=== PATIENT | female | born 1995 | race Caucasian/White ===

== ENCOUNTER 2019-02-01 11:42 | Inpatient (IN) | payer MEDICAID, OTHER ==
[~2019-02-01] VITALS: Ht 157.5 cm; Wt 67.2 kg
[2019-02-01 11:53] VITALS: Ht 157.5 cm; Wt 67.2 kg
--- NOTE | 2019-02-01 11:54 | TRIAGE ---
OB Triage Datetime Report Generated by CPN: 02/01/2019 11:54 Datetime: 02/01/2019 11:52 EGA: 39.0 Datetime: 02/01/2019 11:40 Assessment Type: Triage Maternal Assessment Level of Consciousness: Fully Conscious DTR's/Clonus: DTRs 2+; No Clonus Headache: Denies Blurred Vision: No Respiratory Effort: Unlabored; Regular Rhythm; Equal Expansion Breath Sounds, Left: Clear and Equal Breath Sounds, Right: Clear and Equal Nausea/Vomiting: Denies RUQ Epigastric Pain: Denies Lower Extremities Edema: None Degree: None Upper Extremities Edema: None Degree: None Facial Edema: None Fall Risk Assessment History of Falling: (0) No Secondary Diagnosis: (0) No Ambulatory Aid: (0) Bedrest/Nurse Assist IV Therapy: (0) No Gait: (0) Normal/Bedrest/Immobile Mental Status: (0) Oriented to Own Ability Fall Score: 0 Fall Risk Score Definition: No Risk: No action required Datetime: 02/01/2019 11:32 Time of Arrival: 02/01/2019 11:32 Arrived By: Wheelchair Arrived From: Home Chief Complaint: R/O LABOR Movement: Present Contractions: Regular Time Contractions Began: 02/01/2019 04:00 Contractions: 5-10 Rupture of Membranes: Denies Vaginal Discharge: Denies Recent Sexual Intercouse: Denies Abdominal Trauma: Not Applicable Additional Patient Complaints: NONE Time Provider Notified: 02/01/2019 11:43 Provider Notified: JAMEY Initial Plan: VE AND MONITOR
[2019-02-01] MEDS ORDERED: OXYTOCIN 30 UNITS/LR 500 ML IV SCH ×2 (13:00)
[2019-02-01] MEDS ORDERED: MISOPROSTOL 200 MCG TAB PR PRN ×2 (13:00→17:30)
[2019-02-01] MEDS ORDERED: LIDOCAINE 1% (MPF) 30 ML INJ INJ PRN (13:00)
[2019-02-01] MEDS ORDERED: METHYLERGONOVINE 0.2 MG INJ IM PRN ×2 (13:00→17:30)
[2019-02-01] MEDS: LACTATED RINGER'S 1,000 ML IV SCH ×2 (13:00→16:18)
[2019-02-01] MEDS ORDERED: AMPICILLIN 2 GM/NS (PMX) 100 ML IV ONE (13:00)
[2019-02-01] MEDS ORDERED: OXYTOCIN 30 UNITS/LR 500 ML IV PRN ×2 (13:00→17:30)
[2019-02-01] MEDS ORDERED: BUTORPHANOL 2 MG INJ IV PRN (13:00)
[2019-02-01] MEDS ORDERED: CARBOPROST 250 MCG INJ IM PRN ×2 (13:00→17:30)
[2019-02-01] MEDS ORDERED: LACTATED RINGER'S 1,000 ML IV PRN (13:44)
--- NOTE | 2019-02-01 14:20 | PREAC ---
Date/Time of Note Date/Time of Note DATE: 02/01/19 TIME: : Anesthesia Eval and Record Evaluation Time Pre-Procedure Interview DATE: 02/01/19 TIME: 14: Age 23 Sex female NPO: 8 hrs Preoperative diagnosis labor pain Planned procedure labor epidural Past Medical History Past Medical History: None Surgery & Anesthesia Issues No known issue Meds Anticoagulation: No Beta Luis M within 24 hr: No Reason Beta Luis M not given: Pt. not on B-Luis M Current Medications Lactated Ringer's 1,000 ml @ 125 mls/hr Q8H IV Last administered on 02/01/19at 13:00; Admin Dose 125 MLS/HR; Start 02/01/19 at 12:53 Ampicillin 50 ml @ 100 mls/hr Q4H IV ; Start 02/01/19 at 16:00 Butorphanol Tartrate (Stadol) 2 mg Q2H PRN IV .PAIN SCALE 6-10; Start 02/01/19 at 13:00 Lidocaine (Xylocaine 1% (Mpf)) 30 ml ONCE PRN INJ .EPISIOTOMY; Start 02/01/19 at 13:00 Oxytocin/Lactated Ringer's 500 ml @ 500 mls/hr ONCE POST IV ; Start 02/01/19 at 13:00 Oxytocin/Lactated Ringer's 500 ml @ 125 mls/hr POST IV ; Start 02/01/19 at 13:00 Oxytocin/Lactated Ringer's 500 ml @ 0 mls/hr ONCE PRN IV .VAGINAL BLEEDING; Start 02/01/19 at 13:00 Methylergonovine Maleate (Methergine) 0.2 mg ONCE PRN IM .VAGINAL BLEEDING; Start 02/01/19 at 13:00 Carboprost Tromethamine (Hemabate) 250 mcg ONCE PRN IM .VAGINAL BLEEDING; Start 02/01/19 at 13:00 Misoprostol (Cytotec) 1,000 mcg ONCE PRN PA .VAGINAL BLEEDING; Start 02/01/19 at 13:00 Lactated Ringer's 1,000 ml @ 2,000 mls/hr Q30M PRN IV .ANESTHESIA Last administered on 02/01/19at 13:53; Admin Dose 2,000 MLS/HR; Start 02/01/19 at 13:44 Meds reviewed: Yes Allergies Coded Allergies: No Known Allergy (Unverified , 02/01/19) Allergies Reviewed: Yes Labs/Studies Labs Reviewed: Reviewed by anesthesiologist Result Diagram: 02/01/19 1210 Laboratory Tests 02/01/19 12:10 Blood Bank Test 02/01/19 12:10 Antibody Screen NEGATIVE Blood Type B POSITIVE Rh Immune Globulin Candidate NO test: Positive Pre-procedure Exam Airway: Adequate mouth opening, Adequate thyromental dist Mallampati: Mallampati III Teeth: Normal Lung: Normal Heart: Normal ASA Physical Status ASA physical status: 2 Emergency: None Planned Anesthetic Neuraxial: Epidural Planned Pain Management Epidural, Parenteral pain med, Other neuraxial med Pre-operative Attestations Prior to commencing anesthesia and surgery, the patient was re-evaluated, there was verification of: *The patient's identity *The results of appropriate recent lab work and preoperative vital signs *The above evaluation not changing prior to induction *Anesthetic plan, risk benefits, alternative and complications discussed with patient/family; questions answered; patient/family understands, accepts and wishes to proceed. CHRISTIANO ZAPIEN MD February 01, 2019 14:20
[2019-02-01] MEDS ORDERED: ZOLPIDEM 5 MG TAB PO PRN (14:30)
[2019-02-01] MEDS ORDERED: DIPHENHYDRAMINE 50 MG INJ IV PRN (14:30)
[2019-02-01] MEDS ORDERED: FENTAnyl 2MCG/ML-ROPIV 0.2% 100 ML BAG EPI SCH (14:30)
[2019-02-01] MEDS ORDERED: HYDROmorphONE 0.5 MG/0.5 ML SYG IV PRN ×2 (14:30)
[2019-02-01] MEDS ORDERED: ONDANSETRON 4 MG INJ IV PRN ×2 (14:30→17:30)
[2019-02-01] MEDS ORDERED: KETOROLAC 30 MG INJ IV PRN (14:30)
[2019-02-01] MEDS ORDERED: NALOXONE (0.4 MG/ML) INJ IV PRN (14:30)
[2019-02-01] MEDS ORDERED: AMPICILLIN 1 GM/NS (PMX) 50 ML IV SCH (16:00)
--- NOTE | 2019-02-01 16:43 | PAC ---
Date/Time of Note Date/Time of Note DATE: 02/01/19 TIME: 16:42 Post-Anesthesia Notes Post-Anesthesia Note Activity: WNL Respiratory function: WNL Cardiovascular function: WNL Mental status: Baseline Pain reasonably controlled: Yes Hydration appropriate: Yes Nausea/Vomiting absent: Yes CHRISTIANO ZAPIEN MD February 01, 2019 16:43
--- NOTE | 2019-02-01 17:03 | LDN ---
Date/Time of Note Date/Time of Note DATE: 02/01/19 TIME: 17:02 Delivery Summary Weeks of Gestation 39 Placenta Delivered: Spontaneously Meconium: none Episiotomy: No Estimated blood loss: 150 Sponge & Needle done & correct: Yes All needle counts correct: Yes Any foreign bodies felt in the: No Delivery Information Sex Infant Sex: female Apgars 1 Minute: 9 5 Minute: 9 Suctioning Nose & mouth suctioned at gordo: No Delee suction performed: No Umbilical Cord Umbilical cord with: 3 Vessels Cord presentations: no nuchal cord Cord Blood was obtained: Yes KIARRA CONCEPCION MD February 01, 2019 17:03
--- NOTE | 2019-02-01 17:19 | PREOPHP ---
DATE OF ADMISSION: 02/01/2019 HISTORY OF PRESENT ILLNESS: Ms. Brenda Lama is a 23-year-old 2, para 1, EDC of 02/09/20 19 intrauterine at 39 weeks gestational age, presented to triage in labor. She denies any vaginal bleeding or discharge. Her care took place at the [facility]. PAST MEDICAL HISTORY: None. MEDICATIONS: vitamins. PAST SURGICAL HISTORY: None. OBSTETRICAL HISTORY: x1 vaginal delivery. GYNECOLOGIC HISTORY: 12, regular 3 to 4 days. Denies any sexually transmitted infections. Sexually active with 1 partner. SOCIAL HISTORY: Denies any smoking, drugs or alcohol. FAMILY HISTORY: None. REVIEW OF SYSTEMS: All within normal except history of present illness. PHYSICAL EXAMINATION: HEENT: Within normal. LUNGS: CTA bilateral. CARDIOVASCULAR: S1, S2. Regular rate, rhythm. ABDOMEN: Gravid, nontender. Negative CVA bilateral. EXTREMITIES: Negative edema. No calf tenderness. PELVIC: Vaginal exam: 4 to 5 cm dilated, 90% effaced, -2 station on admission. heart tracing category 1. [place]: Regular contractions. ASSESSMENT: Intrauterine at term in labor. PLAN: Anticipated vaginal delivery. Dictated By: KIARRA HUITRON/MAUREEN Conf#: [id number] DID#: [id number]
[2019-02-01] MEDS ORDERED: OXYCODONE/ASPIRIN (4.88/325) TAB PO PRN ×2 (17:30)
[2019-02-01] MEDS ORDERED: NACL 0.9% 3 ML SYG IV SCH (17:30)
[2019-02-01] MEDS ORDERED: LANOLIN HPA 1 PKT TOP PRN (17:30)
[2019-02-01] MEDS ORDERED: MINERAL OIL LIGHT 10 ML VIAL TOP ONE (17:30)
[2019-02-01] MEDS ORDERED: DIPHENHYDRAMINE 25 MG CAP PO PRN (17:30)
[2019-02-01] MEDS ORDERED: WITCH HAZEL/GLYCERIN PAD PR PRN (17:30)
[2019-02-01 17:55] VITALS: BP 116/73; PULSE 65; RESP 16
[2019-02-01] MEDS: OXYTOCIN 30 UNITS/LR 500 ML IV SCH ×2 (18:04→20:54)
[2019-02-01 18:13] VITALS: BP 117/56; PULSE 73; RESP 18
[2019-02-01 18:27] VITALS: BP 117/69; PULSE 68; RESP 18
[2019-02-01 18:40] VITALS: BP 123/75; PULSE 78; RESP 18
[2019-02-01] MEDS: IBUPROFEN 600 MG TAB PO SCH (18:41)
[2019-02-01 18:59] VITALS: BP 117/73; PULSE 74; RESP 18
[2019-02-01 20:15] VITALS: BP 116/67; PULSE 72; RESP 19
[2019-02-01] MEDS: SENNA/DOCUSATE NA (8.6MG/50MG) TAB PO SCH (20:53)
[2019-02-02] VITALS: BP 126/72; PULSE 67; RESP 19
[2019-02-02 04:00] VITALS: BP 106/59; PULSE 85; RESP 19
[2019-02-02] MEDS: IBUPROFEN 600 MG TAB PO SCH ×5 (05:52→23:43)
[2019-02-02 08:10] VITALS: BP 100/60; PULSE 75; RESP 18
[2019-02-02] MEDS: SENNA/DOCUSATE NA (8.6MG/50MG) TAB PO SCH ×2 (08:24→21:02)
[2019-02-02 12:00] VITALS: BP 128/76; PULSE 73; RESP 18
--- NOTE | 2019-02-02 13:02 | PD.PPDC ---
[employer] Discharge Instruction Condition [id number] Patient Condition: Lwgdr2l Good Diet [id number] Diet: Kluev0w Resume Regular Diet Activity/Restrictions Ohzzp4Kg Activity: Mfexs5r Normal Activity May Shower [id number] Restrictions: Mxwzw5v No Exercising No Lifting No Driving No Sexual Activity Nothing in the Vagina No [place] No Tampons, douche Follow-up Follow-up with Physician: 3, Week/Weeks Return to clinic for Scaar0Rh [employer]PARER Instructions: Gxbdf1w Fever greater than 101 Chills Worsening abdominal pain Excessive Vaginal Bleeding More than 2 pads per hour Unable to tolerate diet [id number] OB Instructions: Roend7w Breast Tenderness Depression Blurried Vision Headache KIARRA CONCEPCION MD February 02, 2019 13:02
--- NOTE | 2019-02-02 13:03 | DS ---
Date/Time of Note Date/Time of Note DATE: 02/02/19 TIME: 13:02 Obstetrical Discharge Record Final Diagnosis Final Diagnosis: Term delivered Vaginal Delivery Obstetrical Delivery: Spontaneous Condition on Discharge Physical Assessment Last Vitals: stable afebrile Voiding: Yes Bowel Movement: Yes Breast: Soft, non-tender, Filling Fundus: Firm Abdomen and Incision: soft nt Calf Tenderness: No Patient Condition: Fair KIARRA CONCEPCION MD February 02, 2019 13:03
[2019-02-02] MEDS: FERROUS SULFATE (EC) 325 MG TAB PO SCH ×2 (13:49→21:02)
[2019-02-02 16:00] VITALS: BP 132/80; PULSE 71; RESP 18
[2019-02-02 19:40] VITALS: BP 132/80; PULSE 64; RESP 20
--- NOTE | 2019-02-02 20:24 | DELSUM ---
Delivery Summary A-C Datetime Report Generated by CPN: 02/02/2019 20:23 DELIVERY PERSONNEL Cloth Covered Helmet Puller: Luis F, [place] MATERNAL INFORMATION Delivery Anesthesia: Epidural Medications in Delivery: LR 500ML PITOCIN 30 UNITS Delivery QBL (ml): 150 Placenta Cultured: No LABOR SUMMARY EDC: 02/08/2019 00:00 No. Babies in Womb: 1 Attempted: No Labor Anesthesia: Epidural LABOR INFORMATION Reason for Induction: Not Applicable Onset of Labor: 02/01/2019 04:30 Complete Dilatation: 02/01/2019 16:25 Oxytocin: N/A Group B Beta Strep: Negative Antibiotics # of Doses: 1 Antibiotics Time of Last Dose: 02/01/2019 13:06 Steroids Given: None Reason Steroids Not Administered: Not Applicable MEMBRANES Membranes Rupture Method: Spontaneous Rupture of Membranes: 02/01/2019 15:58 Length of Rupture (hr): 0.87 Amniotic Fluid Color: Clear Amniotic Fluid Amount: Copious Amniotic Fluid Odor: Normal STAGES OF LABOR Stage 1 hr: 11 Stage 1 min: 55 Stage 2 hr: 0 Stage 2 min: 25 Stage 3 hr: 0 Stage 3 min: 2 Total Time in Labor hr: 12 Total Time in Labor min: 22 VAGINAL DELIVERY Initial Vag Sponge Count: 10 Initial Vag Sharps Count: 1 BABY A INFORMATION Delivery Date/Time: 02/01/2019 16:50 Method of Delivery: Vaginal Born in Route : No : N/A Forceps: N/A Vacuum Extraction: N/A Shoulder Dystocia : No SHOULDER DYSTOCIA BABY A Delivery Date/Time: 02/01/2019 16:50 PRESENTATION/POSITION BABY A Presentation: Cephalic Cephalic Presentation: Vertex Vertex Position: Left Occipital Anterior Breech Presentation: N/A PLACENTA INFORMATION BABY A Placenta Delivery Time : 02/01/2019 16:52 Placenta Method of Delivery: Spontaneous Placenta Status: Delivered SCORES BABY A Heart Rate 1 min: >100 bpm Resp Effort 1 min: Good Cry Reflex Irritability 1 min: Cough/Sneeze/Pulls Away Muscle Tone 1 min: Active Motion Color 1 min: Body [place], Extremit Blue Resuscitation Effort 1 min: Tactile Stimulation SCORE 1 MIN: 9 Heart Rate 5 min: >100 bpm Resp Effort 5 min: Good Cry Reflex Irritability 5 min: Cough/Sneeze/Pulls Away Muscle Tone 5 min: Active Motion Color 5 min: Body [place], Extremit Blue Resuscitation Effort 5 min: Tactile Stimulation SCORE 5 MIN: 9 INFANT INFORMATION BABY A Gestational Age at Delivery: 39.0 Gestational Status: Full Term- 39- 40.6 Weeks Infant Outcome : Liveborn Condition : Stable Sex: Female IDENTIFICATION/MEDS BABY A ID Band Number: [id number] ID Band Location: Right Leg; Left Arm Sensor Applied: Yes Sensor Number: [id number] Sensor Location : Cord Clamp Vitamin K Given : Not Given Erythromycin Given: Not Given WEIGHT/LENGTH BABY A Birthweight (gm): 3155 Weight (lb): 6 Infant Weight (oz): 15 Length (in): 20.00 Length (cm): 50.80 CORD INFORMATION BABY A No. Cord Vessels: 3 Nuchal Cord : N/A Cord Blood Taken: Yes Banking/Donate Info: NO Infant Suction: Mouth; Nose
[2019-02-03 03:56] VITALS: BP 115/63; PULSE 82; RESP 20
[2019-02-03] MEDS: IBUPROFEN 600 MG TAB PO SCH ×2 (05:41→11:38)
[2019-02-03 08:00] VITALS: BP 121/68; PULSE 80; RESP 16
[2019-02-03] MEDS ORDERED: MEASLES,MUMPS,RUBELLA VACCINE INJ SC* ONE (09:00)
[2019-02-03] MEDS: SENNA/DOCUSATE NA (8.6MG/50MG) TAB PO SCH (09:54)
[2019-02-03] MEDS: FERROUS SULFATE (EC) 325 MG TAB PO SCH (09:54)
== END 2019-02-03 11:55 | disposition home or self-care (01) | DRG 807 ==
LOC: OBT 11:42 → L-D 11:43 → MS1 20:17
PROVIDERS: ADMIT Obstetrics & Gynecology; ATTEND Obstetrics & Gynecology
PROC: 10E0XZZ Delivery of Products of Conception, External Approach (ICD-10-PCS; principal; 2019-02-01)
DX: O80 Encounter for full-term uncomplicated delivery (principal); Z37.0 Single live birth; Z3A.39 39 weeks gestation of pregnancy; Z23 Encounter for immunization
CPT/HCPCS: 62322; 76815; 85025; 85610; 85730; 86592; 86850; 86900; 86901; G0463; J0290; J2405; J2590; J3010; J7120

== ENCOUNTER 2019-03-29 19:53 | Emergency (ER) | payer OTHER ==
[~2019-03-29] VITALS: Ht 157.5 cm; Wt 58.2 kg
[2019-03-29 19:55] VITALS: RESP 18; Ht 157.5 cm; Wt 58.2 kg
[2019-03-29] MEDS ORDERED: FEXO180T61 PO (21:29)
[2019-03-29] MEDS ORDERED: TRIA15CR55 TOP (21:29)
[2019-03-29] MEDS ORDERED: DEXAMETHASONE 4 MG TAB PO ONE (21:30)
[2019-03-29] MEDS ORDERED: DIPHENHYDRAMINE 25 MG CAP PO ONE (21:30)
--- NOTE | 2019-03-29 21:32 | ERD ---
ER Documentation Chief Complaint Chief Complaint BUG BITE ON BILATERAL LEGS; ITCHING X1DAY HPI 23-year-old female presents with itchy welts on her legs for the last day. She has a history of being bit by insects yesterday. No shortness of breath, fevers. ROS All systems reviewed and are negative except as per history of present illness. Medications Home Meds Active Scripts Triamcinolone Acetonide (Triamcinolone Acetonide) 0.1% - 15 Gm Cream.gm., 1 APPLIC TOP QID for 7 Days, #1 TUB Prov:THAO CERDA MD 03/29/19 Fexofenadine Hcl* (Kayley*) 180 Mg Tablet, 180 MG PO DAILY, #15 TAB Prov:THAO CERDA MD 03/29/19 Allergies Allergies: Coded Allergies: No Known Allergy (Unverified , 02/01/19) PMhx/Soc Medical and Surgical Hx: pt denies Medical Hx, pt denies Surgical Hx Hx Alcohol Use: No Hx Substance Use: No Hx Tobacco Use: No FmHx Family History: No diabetes, No coronary disease, No other Physical Exam Vitals Vital Signs Date Temp Pulse Resp B/P (MAP) Pulse Ox O2 O2 Flow FiO2 Time Delivery Rate 03/29/19 97.4 73 18 124/68 96 19:55 (86) Physical Exam Const: No acute distress Head: Atraumatic Eyes: Normal Conjunctiva ENT: Normal External Ears, Nose and Mouth. Neck: Full range of motion. No meningismus. Resp: Clear to auscultation bilaterally Cardio: Regular rate and rhythm, no murmurs Abd: Soft, non tender, non distended. Normal bowel sounds Skin: No petechiae or rashes. Scattered erythematous circular lesions of the lower extremities. No induration, streaking, vesicles, fluctuance. Back: No midline or flank tenderness Ext: No cyanosis, or edema Neur: Awake and alert Psych: Normal Mood and Affect Results 24 hrs Current Medications Medications Dose Sig/Juani Start Time Status Last (Trade) Ordered Route PRN Stop Time Admin Dose Reason Admin 12 mg ONCE ONCE 03/29/19 DC Dexamethasone PO 21:30 (Decadron) 03/29/19 21:31 25 mg ONCE ONCE 03/29/19 DC Diphenhydrami PO 21:30 ne HCl 03/29/19 21:31 (Benadryl) Procedures/MDM Presents with signs and symptoms of likely local reaction to insect bite sustained yesterday. She has no signs currently of cellulitis, anaphylaxis, purpura or life-threatening rashes. She will be given Decadron 12 g by mouth, Benadryl, prescription of Kayley and triamcinolone with instructions for cold compresses, return precautions for worsening redness, fevers, new or worsening symptoms. The patient was stable with no new complaints during the ER course. Clinically, there is no current evidence to suggest meningitis, sepsis, acute abdomen, pneumonia, stroke, acute coronary syndrome, pulmonary embolism, aortic dissection or any other emergent condition appearing to require further evaluation or hospitalization. Patient counseled regarding my diagnostic impression and care plan. Prior to discharge all questions answered. Pt agrees with treatment plan and understands strict return precautions. Pt is instructed to follow up with primary care provider within 24-48 hours. Precautionary instructions provided including instructions to return to the ER if not improving or for any worsening or changing symptoms or concerns. Disclaimer: Inadvertent spelling and grammatical errors are likely due to EHR/dictation software use and do not reflect on the overall quality of patient care. Also, please note that the electronic time recorded on this note does not necessarily reflect the actual time of the patient encounter. Departure Diagnosis: Primary Impression: Insect bite Encounter type: initial encounter Site of insect bite: unspecified site Qualified Codes: W57.XXXA - Bitten or stung by nonvenomous insect and other nonvenomous arthropods, initial encounter Condition: Stable Patient Instructions: Insect Bites and Stings Referrals: DOCTOR,NOT ON STAFF (PCP) Additional Instructions: Apply cold compresses at home. Recheck for worsening redness, fevers, vomiting, new worsening symptoms. THAO CERDA MD Mar 29, 2019 21:32
[2019-03-29 21:53] VITALS: BP 120/77; PULSE 59
== END 2019-03-29 21:55 | disposition home or self-care (01) ==
LOC: FTE 19:53
DX: S80.861A Insect bite (nonvenomous), right lower leg, initial encounter (principal); S80.862A Insect bite (nonvenomous), left lower leg, initial encounter; W57.XXXA Bitten or stung by nonvenomous insect and other nonvenomous arthropods, initial encounter
CPT/HCPCS: Z7502; Z7610; 99283